=== PATIENT | male | born 2000 | race Caucasian/White ===

== ENCOUNTER 2019-07-06 19:17 | Emergency (ER) | payer SELFPAY ==
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
[2019-07-06 21:11] LABS: ABS Basophils 0.1 10^3/ul (0-0.2); ABS Eosinophils 0.1 10^3/ul (0-0.6); ABS Lymphocytes 1.5 10^3/ul (1.0-4.8); ABS Neutrophils 13.3 10^3/ul (1.5-7.7); Eosinophil % 0.6 %; Hematocrit 48 % (42-52); Hemoglobin 16.6 g/dL (14.0-18.0); Lymphocyte % 9.6 %; Mean Corpuscular HGB Conc 35 g/dL (31-36); Mean Corpuscular Hemoglobin 30 pg (27-31); Mean Corpuscular Volume 87 fL (80-94); Mean Platelet Volume 7.9 fL (7.4-10.4); Platelet Count 290 10^3/uL (150-450); Red Blood Count 5.54 10^6 /uL (4.18-5.48); Red Cell Distribution Width 13 % (10-15)
[2019-07-06 21:23] LABS: ALT 13 U/L (7-52); AST 23 U/L (13-39); Albumin 4.9 g/dL (3.2-5.2); Albumin/Globulin Ratio 1.8 (1-3); Alkaline Phosphatase 61 U/L (34-104); Anion Gap 9 mmol/L (2-11); BUN/Creatinine Ratio 8.2 (8-20); Blood Urea Nitrogen 9 mg/dL (6-24); CO2 Carbon Dioxide 27 mmol/L (22-32); Calcium 9.7 mg/dL (8.6-10.3); Chloride 105 mmol/L (101-111); EGFR African American 102.2 (>60); EGFR Non-African American 84.5 (>60); Globulin 2.8 g/dL (2-4); Glucose 87 mg/dL (70-100); Potassium 3.6 mmol/L (3.5-5.0); Sodium 141 mmol/L (135-145); Total Protein 7.7 g/dL (6.4-8.9)
[2019-07-06 21:29] LABS: Acetaminophen < 15 mcg/mL; Alcohol 47 mg/dL (<10); Salicylate < 2.50 mg/dL (<30)
[2019-07-06 21:44] LABS: TSH (Thyroid Stimulating Horm) 2.26 mcIU/mL (0.34-5.60)
[2019-07-06] MEDS ORDERED: Tetan/Diph/Pertus SYR(Tdap)* 0.5 ML SYR(BOOSTRIX) use SYR contains LATEX IM ONE (21:53)
[2019-07-06 22:22] VITALS: BP 129/84
--- NOTE | 2019-07-06 23:09 | ED ---
Progress - Progress Note Progress Note: Patient is received as a sign-out from Dr. Grider at 2200 07/06/19 shift end pending MHE of this mental health patient. 0247 Patients case was reviewed by Dr. Laguerre, patient was discharged from [facility]. Patient is wanted for arrest and police escorted patient out of [facility]. Re-Evaluation - Re-Evaluation First Eval Re-Evaluation Time: 21:53 Comment: Patient is medically clear for mental health evaluation. Course/Dx - Diagnoses Provider Diagnoses: Alcohol abuse, Marijuana use, Violent behavior - Provider Notifications Discussed Care Of Patient With: Timoteo Laguerre Time Discussed With Above Provider: 02:47 Instructed by Provider To: Other - 0247 Patients case was reviewed by Dr. Laguerre, patient was discharged from [facility]. Patient is wanted for arrest and police escorted patient out of [facility]. Discharge ED - Sign-Out/Discharge Documenting (check all that apply): Patient Departure - discharge , Receiving Sign-Out Receiving patient FROM: Chemo Grider - Discharge Plan Condition: Stable Disposition: LAW ENFORCEMENT/COURT Patient Education Materials: Abuse of Alcohol (ED) Referrals: Dangelo Anderson, [Primary Care Provider] - Additional Instructions: Per completion of a mental health evaluation, you are cleared for release and do not require inpatient psychiatric hospitalization at this time. Please go to nearest emergency room or call 911 if safety concerns arise or condition worsens. Important Phone Numbers: [facility] Behavioral Services Unit [phone] Suicide Prevention and Crisis Services........................ [phone] National Suicide Prevention Lifeline............................ 967-009-OYCG ([phone]) [facility]....................... [phone] Alcoholics Anonymous............................................... [phone] [facility].............. [phone] [facility] Police.............................................. Substance Abuse Treatment Programs [place] [facility] Alcohol and Drug [facility] Instructions to copy and paste for Adolescent patients: Per completion of a mental health evaluation, you are cleared for release to the care of and do not require inpatient psychiatric hospitalization at this time. Please go to nearest emergency room or call 911 if safety concerns arise or condition worsens. Important Phone Numbers: [facility] Behavioral Services Unit: [phone] Suicide Prevention and Crisis Services: [phone] National Suicide Prevention Lifeline: 969-591-QKJU (7929) [facility]: [phone] Family And Childrens Service [facility]: [phone] Alcoholics Anonymous: [phone] [facility]: [phone] [facility] Police: [phone] - Billing Disposition and Condition Condition: STABLE Disposition: Law Enforcement/Court - Attestation Statements Document Initiated by Alibe: Yes Documenting Scribe: NERI MARTÍNEZ Provider For Whom Alibe is Documenting (Include Credential): TIFFANY DUEÑAS MD Scribe Attestation: I, NERI MARTÍNEZ, scribed for TIFFANY DUEÑAS MD on 07/07/19 at 0632. Scribe Documentation Reviewed: Yes Provider Attestation: The documentation as recorded by the NERI godoy accurately reflects the service I personally performed and the decisions made by me, TIFFANY DUEÑAS MD Status of Scribe Document: Viewed
== END 2019-07-07 02:55 ==
LOC: ED 19:17
DX: F10.10 Alcohol abuse, uncomplicated (principal); F12.90 Cannabis use, unspecified, uncomplicated; R45.6 Violent behavior; Z23 Encounter for immunization; J45.909 Unspecified asthma, uncomplicated; F90.9 Attention-deficit hyperactivity disorder, unspecified type; F84.0 Autistic disorder; F32.9 Major depressive disorder, single episode, unspecified; F17.290 Nicotine dependence, other tobacco product, uncomplicated
CPT/HCPCS: 36415; 70450; 70486; 80053; 80320; 80329; 84443; 85025; 90471; 90715; 99284; G0480